=== PATIENT | female | born 1980 | race Caucasian/White ===

== ENCOUNTER → 2016-06-11 | Outpatient (CLI) | payer OTHER ==
[~2016-06-11] MED LIST: AMOX875T PO; METH4PAK4 PO; NORE-18 PO; PRENTAB26 PO
== END | disposition home or self-care (01) ==
LOC: C.LABSPEC 14:58
PROVIDERS: ATTEND Obstetrics & Gynecology
DX: Z34.83 Encounter for supervision of other normal pregnancy, third trimester (principal)

== ENCOUNTER 2016-07-01 19:45 | Inpatient (IN) | payer OTHER ==
[~2016-07-01] VITALS: Ht 156.8 cm; Wt 59.1 kg
[~2016-07-01 19:45] MED LIST changes: -AMOX875T PO; -NORE-18 PO
[2016-07-01] MEDS ORDERED: LACTATED RINGER'S 1000ML 1,000 ML IV PRN (20:28)
[2016-07-01] MEDS ORDERED: MISOPROSTOLTAB 50 MCG TAB PO ONE (20:30)
[2016-07-01 20:45] VITALS: Ht 156.8 cm; Wt 59.1 kg
[2016-07-01 21:00] LABS: HEMATOCRIT 37.1 % (37-47); MEAN CELL VOLUME 94.2 fL (80-100); MEAN CORPUSCULAR HEMOGLOBIN 32.2 pg (25-34); MEAN CORPUSCULAR HGB CONC 34.2 g/dl (32-36); MEAN PLATELET VOLUME 10.4 fL (7.4-10.4); PLATELET COUNT 239 K/uL (130-400); RED BLOOD COUNT 3.94 M/uL (4.2-5.4); WHITE BLOOD COUNT 8.96 K/uL (4.8-10.8)
[2016-07-02] MEDS: LACTATED RINGER'S 1000ML 1,000 ML IV SCH ×2 (07:48→09:05)
[2016-07-02] MEDS ORDERED: BUPIVACAINE 0.25% 30 ML VIAL ONE ×2 (07:51→10:59)
[2016-07-02] MEDS ORDERED: EpHEDrine SULFATE INJ 50 MG/ML AMP ONE (07:52)
[2016-07-02] MEDS ORDERED: FENTANYL CITRATE INJ 50 MCG/1 ML 2 ML VIAL ONE (07:52)
[2016-07-02] MEDS ORDERED: FENTANYL 2MCG/ML ROPIV 1.25MG/ML 100ML BAG EPI ONE (07:52)
[2016-07-02] MEDS ORDERED: LACTATED RINGER'S 1000ML 500 ML IV PRN ×2 (08:41→09:14)
[2016-07-02] MEDS ORDERED: NALOXONE HCL INJ 1 MG in SODIUM CHLORIDE 0.9% 1000ML 1,000 ML IV PRN (08:41)
[2016-07-02] MEDS ORDERED: EpHEDrine SULFATE INJ 50 MG/ML AMP IV PRN (08:45)
[2016-07-02] MEDS ORDERED: ONDANSETRON INJ 2 MG/ML 2 ML VIAL IV PRN (08:45)
[2016-07-02] MEDS ORDERED: NALOXONE HCL INJ 0.4 MG/1 ML VIAL/CARP IV PRN (08:45)
[2016-07-02] MEDS ORDERED: NALBUPHINE HCL INJ 10 MG/ML AMP IV PRN (08:45)
[2016-07-02] MEDS ORDERED: DiphenhydrAMINE HCL 50 MG/ML VIAL IV PRN (08:45)
[2016-07-02] MEDS ORDERED: FENTANYL 2MCG/ML ROPIV 1.25MG/ML 100ML BAG EPI PRN (08:45)
[2016-07-02] MEDS ORDERED: OXYTOCIN 30 UNITS/500ML NSS IV ONE (08:52)
[2016-07-02] MEDS ORDERED: OXYTOCIN 30 UNITS/500ML NSS IV PRN ×2 (09:15→12:30)
[2016-07-02] MEDS ORDERED: DIPHTHERIA/TETANUS/PERTUSSIS 0.5 ML SYR/VIAL IM. ONE (12:30)
[2016-07-02] MEDS ORDERED: LANOLIN OINT EXT PRN ×2 (12:30)
[2016-07-02] MEDS ORDERED: ACETAMINOPHEN/CODEINE 300/30MG TAB PO PRN ×2 (12:30)
[2016-07-02] MEDS ORDERED: OXYCODONE/ACETAMINOPHEN 5-325 TAB PO PRN (12:30)
[2016-07-02] MEDS ORDERED: HYDROCORTISONE ACETATE 25 MG SUPP PR PRN (12:30)
[2016-07-02] MEDS ORDERED: SUPERCREAM 0.870 % 15GM JAR EXT PRN (12:30)
[2016-07-02] MEDS ORDERED: BENZOCAINE 20% AER SPR 82.5 GM CAN EXT PRN (12:30)
--- NOTE | 2016-07-02 13:17 | Anesthesia Procedure Note ---
Anesthesia Epidural Removal Nt Date & Time July 02, 2016 at 13:17 Vital Signs Pain Intensity: 0.0 Notes Mental Status: alert / awake / arousable, participated in evaluation Nausea / Vomiting: adequately controlled Pain: adequately controlled Airway Patency, RR, SpO2: stable & adequate BP & HR: stable & adequate Hydration State: stable & adequate Neuraxial Anesthesia: was administered, sensory block is resolving Anesthetic Complications: no major complications apparent, pt satisfied with anesthetic care Epidural: removed without complications, with tip intact
--- NOTE | 2016-07-02 13:32 | DELIVERY SUMMARY ---
DATE OF OPERATION: 07/02/2016 DATE OF DELIVERY: 07/02/2016. Dominga is a 36-year-old 3, para 3. Her general health is good. Her blood type is B positive, rubella immune. She was dated with an early first trimester ultrasound giving her a due date of 07/08/2016. She was brought in at 39+ weeks for induction. At the time of admission, her cervix was 1.5 cm dilated. Presenting part was high, was uneffaced posterior. We gave her 50 mcg of Cytotec. She contracted throughout the evening and the next morning when I came in to check her she was like 4-5 about 80-90% effaced. After this she requested and received epidural from which she obtained good pain relief. After the epidural was in place membranes were ruptured, fluid was clear. She was then augmented with IV Pitocin. She went to full dilatation and delivered a live infant via direct occiput anterior position over an intact perineum, controlled delivery of the head; however, she did incur first degree laceration. There was a nuchal cord which was easily reduced over the head. was suctioned through the mouth and the nose. Shoulders were delivered without difficulty. Cord was clamped, cut by the father. Cord blood was taken. With IV Pitocin running, uterus contracted nicely and the placenta was removed intact. Following this, hemostasis was good. Inspection of the perineum revealed a first degree laceration. This was repaired anatomically with 2-0 Vicryl. 2-0 Vicryl was used to approximate the vaginal mucosa out to beyond the hymenal ring. A deep suture of 2-0 Vicryl was used to approximate the bulbocavernosus muscles and 3 interrupted sutures of 2-0 Vicryl were used to approximate the perineal body. Following this, a running subcuticular suture of Vicryl used to approximate the perineal skin edges. Sponges were removed from the vagina. Vaginal exam including rectovaginal examination revealed no hematoma formation or sponges in the vagina. Hemostasis was good. Estimated blood loss 300 mL. Estimated Apgars were 8 and 9 respectively. I attest to the content of the Intraoperative Record and any orders documented therein. Any exceptio ns are noted below.
[2016-07-02 18:30] VITALS: BP 131/70; PULSE 84; TEMP 36.6
[2016-07-02 19:25] VITALS: BP 113/72; PULSE 73; TEMP 36.7; O2SAT 97
[2016-07-02] MEDS: ACETAMINOPHEN 325 MG TAB PO PRN (22:49)
[2016-07-02 23:30] VITALS: BP 107/62; PULSE 68; TEMP 36.7; O2SAT 98
[2016-07-03 03:45] VITALS: BP 94/61; PULSE 83; TEMP 36.7; O2SAT 97
[2016-07-03 07:41] LABS: HEMATOCRIT 36.5 % (37-47)
[2016-07-03 07:45] VITALS: BP 97/61; PULSE 71; TEMP 36.6; O2SAT 94
[2016-07-03] MEDS ORDERED: PRENATAL VITAMIN TAB PO SCH (08:00)
[2016-07-03] MEDS ORDERED: FERROUS SULFATE 325 MG TAB PO SCH (08:00)
[2016-07-03] MEDS: ACETAMINOPHEN 325 MG TAB PO PRN (08:11)
--- NOTE | 2016-07-03 09:43 | Progress Note ---
Subjective July 03, 2016. Subjective conversation w/ patient Ambulation: ambulating normally Voiding: no voiding problems Passing Gas: Yes Diet Tolerance: Regular Diet Lochia: Small Feeding Type: Breast Feeding Review of Systems Constitutional: + fever Objective Vital Signs Date Time Temp Pulse Resp B/P Pulse Ox O2 Delivery O2 Flow Rate FiO2 07/03/16 03:45 36.7 83 18 94/61 97 Room Air 07/02/16 23:30 98 Room Air 07/02/16 23:30 36.7 68 18 107/62 98 Room Air 07/02/16 19:25 36.7 73 16 113/72 97 Room Air 07/02/16 19:25 97 Room Air 07/02/16 18:30 36.6 84 20 131/70 Physical Exam General Appearance: WELL-APPEARING Abdomen: non tender Fundus: Firm, Non-Tender Extremities: no pedal edema, no calf tenderness Laboratory Results Last 24 Hours Test 07/03/16 07:30 Hemoglobin 12.0 g/dL Hematocrit 36.5 % Assessment and Plan Post- Day#: 1
--- NOTE | 2016-07-03 09:45 | Discharge Instructions ---
Discharge Instructions Date of Service July 03, 2016. Admission Reason for Admission: IUP Discharge Discharge Diagnosis / Problem: induction of labor Discharge Goals Goal(s): Routine recovery after delivery Activity Recommendations Activity Limitations: as noted below ACTIVITY RECOMMENDATIONS: * Gradual return to full activity over the next 2-3 weeks. * No lifting - nothing heavier than baby over the next 2-3 weeks. * Do not engage in vigorous exercise, sexual activity or sports until cleared by your physician. * Do not drive or operate any motorized equipment until cleared by your physician. * You may shower/bathe daily. DIET: Resume Previous Diet If Breast-feeding: * Increase caloric intake by 500 calories, eat 3 well balanced meals, 2 high protein snacks a day and drink 6-8 8oz. glasses of fluid per day. BREAST CARE: If you are not breast feeding: * Wear a supportive bra 24 hours a day for one to two weeks. * Avoid stimulating your breasts and nipples as much as possible during the first few weeks after delivery. * When taking a shower, have the warm water hit your back, not breasts. * When your breasts feel full, apply ice packs. Usually three to four times a day helps ease the discomfort. * Take a mild pain medication (Tylenol / Motrin) when you are uncomfortable. If breast feeding: * Use breast milk to lubricate nipples. Lansinoh cream may be used for sore nipples. You do not need to remove cream prior to breast feeding. If using a different brand of cream, check the label for directions regarding removal of cream prior to nursing. * Wear a supportive bra. * If having problems with breasts or breast feeding, call a communications consultant or your health care provider. OVER THE COUNTER MEDICATION: * For discomfort or pain, you may use Acetaminophen (Tylenol), Ibuprofen (Advil ), or Naproxen (Aleve) following the package directions. * For constipation you may use Colace following the package directions. SPECIAL CARE INSTRUCTIONS: * Vaginal rest (no tampons, douching, intercourse) until after doctor 's visit. * control as discussed with doctor. * Verbalizes understanding of car seat law as reviewed with patient nursing. * Car Seat hand-out given and reviewed with patient by nursing. * Shaken baby information reviewed with patient by nursing. Call you doctor if: * Temperature greater than or equal to 100.4 degrees F or 38.0 degrees C. Take your temperature twice daily for a week. * Bleeding becomes heavier than the heaviest part of your period - saturating a sanitary pad within an hour. * Passing large clots. * Bleeding has a foul smelling odor. * Signs and symptoms of phlebitis: leg pain, warm, red or swollen area on leg. * "Baby Blues" lasting longer than two weeks. ++ If you have had a and incision has increased pain, redness, swelling, presence of any drainage, or if the incision starts to open up. If you have any questions or concerns, call your health care practitioner at [phone]. FOLLOW-UP VISIT: Please call the office at to schedule a 6 week examination. . Instructions / Follow-Up Instructions / Follow-Up ACTIVITY RECOMMENDATIONS: * Gradual return to full activity over the next 2-3 weeks. * No lifting - nothing heavier than baby over the next 2-3 weeks. * Do not engage in vigorous exercise, sexual activity or sports until cleared by your physician. * Do not drive or operate any motorized equipment until cleared by your physician. * You may shower/bathe daily. DIET: Resume Previous Diet If Breast-feeding: * Increase caloric intake by 500 calories, eat 3 well balanced meals, 2 high protein snacks a day and drink 6-8 8oz. glasses of fluid per day. BREAST CARE: If you are not breast feeding: * Wear a supportive bra 24 hours a day for one to two weeks. * Avoid stimulating your breasts and nipples as much as possible during the first few weeks after delivery. * When taking a shower, have the warm water hit your back, not breasts. * When your breasts feel full, apply ice packs. Usually three to four times a day helps ease the discomfort. * Take a mild pain medication (Tylenol / Motrin) when you are uncomfortable. If breast feeding: * Use breast milk to lubricate nipples. Lansinoh cream may be used for sore nipples. You do not need to remove cream prior to breast feeding. If using a different brand of cream, check the label for directions regarding removal of cream prior to nursing. * Wear a supportive bra. * If having problems with breasts or breast feeding, call a communications consultant or your health care provider. OVER THE COUNTER MEDICATION: * For discomfort or pain, you may use Acetaminophen (Tylenol), Ibuprofen (Advil ), or Naproxen (Aleve) following the package directions. * For constipation you may use Colace following the package directions. SPECIAL CARE INSTRUCTIONS: * Vaginal rest (no tampons, douching, intercourse) until after doctor 's visit. * control as discussed with doctor. * Verbalizes understanding of car seat law as reviewed with patient nursing. * Car Seat hand-out given and reviewed with patient by nursing. * Shaken baby information reviewed with patient by nursing. Call you doctor if: * Temperature greater than or equal to 100.4 degrees F or 38.0 degrees C. Take your temperature twice daily for a week. * Bleeding becomes heavier than the heaviest part of your period - saturating a sanitary pad within an hour. * Passing large clots. * Bleeding has a foul smelling odor. * Signs and symptoms of phlebitis: leg pain, warm, red or swollen area on leg. * "Baby Blues" lasting longer than two weeks. ++ If you have had a and incision has increased pain, redness, swelling, presence of any drainage, or if the incision starts to open up. If you have any questions or concerns, call your health care practitioner at [phone]. FOLLOW-UP VISIT: Please call the office at to schedule a 6 week examination. Current Hospital Diet Patient's current hospital diet: Regular OB Diet Discharge Diet Recommended Diet: Regular Diet Pending Studies Studies pending at discharge: no Medical Emergencies . Who to Call and When: Medical Emergencies: If at any time you feel your situation is an emergency, please call 911 immediately. . Non-Emergent Contact Non-Emergency issues call your: [facility] Consultant Call Non-Emergent contact if: temperature is above 100.5 . . "Provider Documentation" section prepared by Ryan Amaro. . VTE Core Measure Inpt VTE Proph given/why not?: Treatment not indicated
[2016-07-03] MEDS ORDERED: NURSING VERBAL MED ORDER ONE (11:15)
[2016-07-03] MEDS ORDERED: IBUPROFEN 600 MG TAB PO ONE (11:30)
[2016-07-03 12:00] VITALS: BP 106/68; PULSE 68; TEMP 36.8; O2SAT 95
[2016-07-03 14:14] VITALS: BP_DIAS 68; PULSE 68; TEMP 36.8
[2016-07-03] MEDS ORDERED: BISACODYL 5 MG TABEC PO SCH (20:00)
[2016-07-04] MEDS ORDERED: BISACODYL 10 MG SUPP PR PRN (07:00)
== END 2016-07-03 14:15 | disposition home or self-care (01) | DRG 775 ==
LOC: C.LD 19:45 → C.OBG 07-02 18:37
PROVIDERS: ADMIT Obstetrics & Gynecology; ATTEND Obstetrics & Gynecology
PROC: 0HQ9XZZ Repair Perineum Skin, External Approach (ICD-10-PCS; principal; 2016-07-02)
PROC: 10907ZC Drainage of Amniotic Fluid, Therapeutic from Products of Conception, Via Natural or Artificial Opening (ICD-10-PCS; principal; 2016-07-02)
PROC: 10E0XZZ Delivery of Products of Conception, External Approach (ICD-10-PCS; principal; 2016-07-02)
PROC: 3E033VJ Introduction of Other Hormone into Peripheral Vein, Percutaneous Approach (ICD-10-PCS; principal; 2016-07-02)
DX: O26.893 Other specified pregnancy related conditions, third trimester (principal); Z37.0 Single live birth; O70.0 First degree perineal laceration during delivery; O69.81X0 Labor and delivery complicated by cord around neck, without compression, not applicable or unspecified; Z3A.39 39 weeks gestation of pregnancy

== ENCOUNTER → 2016-09-10 | Outpatient (CLI) | payer OTHER ==
[~2016-09-10] MED LIST changes: -METH4PAK4 PO
== END | disposition home or self-care (01) ==
LOC: C.PAPS 15:51
PROVIDERS: ATTEND Obstetrics & Gynecology
DX: Z39.2 Encounter for routine postpartum follow-up (principal)

== ENCOUNTER 2016-12-28 21:05 | Emergency (ER) | payer OTHER ==
[~2016-12-28] VITALS: Ht 157.5 cm; Wt 47.5 kg
[2016-12-28] MEDS ORDERED: KETOROLAC TROMETHAMINE 30 MG/ML VIAL IV STA (21:28)
[2016-12-28] MEDS ORDERED: SODIUM CHLORIDE 0.9% 1000ML 1,000 ML IV STA (21:28)
[2016-12-28] MEDS ORDERED: ACETAMINOPHEN 500 MG TAB PO STA (21:28)
[2016-12-28 22:07] VITALS: Ht 157.5 cm; Wt 47.5 kg
[2016-12-28 22:08] VITALS: O2SAT 95
[2016-12-28] MEDS ORDERED: NORE-18 PO (22:08)
--- NOTE | 2016-12-28 22:19 | DIAGNOSTIC IMAGING REPORT ---
CHEST ONE VIEW PORTABLE CLINICAL HISTORY: fever/cough cough COMPARISON STUDY: 2013 FINDINGS: Consolidative infiltrate right base and right infrahilar region. Lungs otherwise are clear. Diaphragms smooth. Costophrenic angles are sharp. IMPRESSION: Infiltrate right base The above report was generated using voice recognition software. It may contain grammatical, syntax or spelling errors. Electronically signed by: Germán Barbour M.D. 12/28/2016 10:18 PM Dictated Date/Time: 12/28/2016 10:18 PM
[2016-12-28 22:30] LABS: BASO % 0.2 %; BASO ABS # 0.03 K/uL (0-0.2); COMPLETE YES; EOS % 0.2 %; HEMATOCRIT 39.3 % (37-47); IG% 0.4 %; LYMPH % 11.2 %; LYMPH ABS # 1.46 K/uL (1.2-3.4); MEAN CELL VOLUME 89.9 fL (80-100); MEAN CORPUSCULAR HEMOGLOBIN 30.9 pg (25-34); MEAN CORPUSCULAR HGB CONC 34.4 g/dl (32-36); MEAN PLATELET VOLUME 9.9 fL (7.4-10.4); MONO % 10.3 %; NEUT % 77.7 %; PLATELET COUNT 222 K/uL (130-400); RED BLOOD COUNT 4.37 M/uL (4.2-5.4); WHITE BLOOD COUNT 13.02 K/uL (4.8-10.8)
[2016-12-28] MEDS ORDERED: CEFTRIAXONE SOD INJ 1 GM ADDVIAL IV STA (22:34)
[2016-12-28 22:40] LABS: INR 1.2 (0.9-1.1); PARTIAL THROMBOPLASTIN RATIO 1.1; PROTHROMBIN TIME (PATIENT) 12.5 SECONDS (9.0-12.0)
[2016-12-28 22:47] LABS: ALT/SGPT 10 U/L (12-78); BLOOD UREA NITROGEN 14 mg/dl (7-18); BUN/CREATININE RATIO 13.6 (10-20); CALCIUM 8.6 mg/dl (8.5-10.1); CARBON DIOXIDE 26 mmol/L (21-32); CHLORIDE 101 mmol/L (98-107); CREATININE 1.04 mg/dl (0.60-1.20); GLUCOSE 115 mg/dl (70-99); SODIUM 135 mmol/L (136-145)
[2016-12-28 22:50] LABS: ALB/GLOB RATIO 0.9 (0.9-2); ALKALINE PHOSPHATASE 62 U/L (45-117); AST/SGOT 16 U/L (15-37)
[2016-12-28 22:57] LABS: PREG INTERNAL NEGATIVE QC NEG CLEAR BACKGROUND; PREG INTERNAL POSITIVE QC POS CONTROL LINE
[2016-12-28] MEDS ORDERED: KETOROLAC TROMETHAMINE 30 MG/ML VIAL ONE (23:16)
[2016-12-28 23:24] VITALS: TEMP 37.3
[2016-12-28] MEDS ORDERED: POTASSIUM CHLORIDE 10 MEQ TABCR PO STA (23:42)
[2016-12-28 23:53] LABS: INFLUENZA A PCR Neg for Influ A (NEG); INFLUENZA B PCR Neg for Influ B (NEG)
[2016-12-28 23:54] LABS: URINE APPEARANCE CLEAR (CLEAR); URINE BILIRUBIN NEG (NEG); URINE COLOR YELLOW; URINE EPITHELIAL CELL AUTO >30 /lpf (0-5); URINE NITRITE NEG (NEG); URINE SPECIFIC GRAVITY 1.015 (1.000-1.030); UROBILINOGEN NEG (NEG)
[2016-12-28 23:56] LABS: MANUAL MICROSCOPIC REQUIRED? NO; REVIEW REQ? YES
[2016-12-29 00:25] LABS: URINE PATH CASTS 5-10 WBC CASTS /lpf (0)
--- NOTE | 2016-12-29 00:25 | EMERGENCY ROOM VISIT NOTE ---
History First contact with patient: 21:23 Chief Complaint: FEVER Stated Complaint: FEVER, HEADACHE, TIGHT CHEST, DIZZY History of Present Illness The patient is a 36 year old female who presents to the Emergency Room with complaints of cough, congestion, chest tightness, headache, fever, chills, myalgias and arthralgias for the past 3 days. Tmax 102. She took Motrin at noon. Patient is currently breast-feeding. No sick contacts. No flu shot. No recent antibiotics. No tick bites. Patient denies any active medical problems. She is tolerate by mouth fluids and food. Patient denies dyspnea, abdominal pain, vomiting, diarrhea, neck status, sore throat. No rashes. No recent antibiotics. No recent travel. Review of Systems See HPI for pertinent positives & negatives. A total of 10 systems reviewed and were otherwise negative. Past Medical/Surgical History Medical Problems: (1) Term Surgical Problems: (1) Hx of tonsillectomy Family History No pertinent family history Social History Smoking Status: Never Smoker Alcohol Use: none Drug Use: none Marital Status: Housing Status: lives with family, lives with significant other Occupation Status: employed Current/Historical Medications Scheduled Norethindrone (Contraceptive) (Sharobel), 1 TAB PO DAILY Physical Exam Vital Signs Date Time Temp Pulse Resp B/P (MAP) Pulse Ox O2 Delivery O2 Flow Rate FiO2 12/28/16 23:24 37.3 12/28/16 22:12 87 20 96/62 97 Room Air 12/28/16 22:08 95 Room Air 12/28/16 21:08 39.0 101 20 118/73 94 Room Air Physical Exam VITALS: Vitals are noted on the nurse's note and reviewed by myself. Vital signs febrile GENERAL: Pleasant female mildly ill-appearing, in no acute distress, nondiaphoretic, well-developed well-nourished. SKIN: The skin was without rashes, erythema, edema, or bruising. There is no tenting of the skin. Capillary reflex less than 2 seconds. HEAD: Normocephalic atraumatic. EARS: External auditory canals clear, tympanic membranes pearly wright without erythema or effusion bilaterally. EYES: Pupils equal round and reactive to light and accommodation. Conjunctivae without injection, sclerae without icterus. Extraocular movements intact. NOSE: Patent, turbinates without inflammation or discharge. No sinus tenderness. MOUTH: Mucous membranes mildly dry. Pharynx without erythema or exudate. Uvula midline. Airway patent. Tongue does not deviate. NECK: Supple without nuchal rigidity. No lymphadenopathy. No thyromegaly. Cervical spine is nontender. No JVD. No meningeal signs HEART: Regular rate and rhythm without murmurs gallops or rubs. LUNGS: Clear to auscultation bilaterally without wheezes, or rhonchi. No retractions or accessory muscle use. ABDOMEN: Positive bowel sounds x 4. Normal tympanic percussion. Soft, nontender, without masses or organomegaly. Vera sign negative. No guarding or rebound tenderness. No CVA tenderness MUSCULOSKELETAL: No muscle atrophy, erythema, or edema noted. NEURO: Patient was alert and oriented to person place and time. Normal sensation to light and sharp touch. No focal neurological deficits. Medical Decision & Procedures Laboratory Results 12/28/16 22:07 Red Blood Count 4.37, Mean Corpuscular Volume 89.9, Mean Corpuscular Hemoglobin 30.9, Mean Corpuscular Hemoglobin Concent 34.4, Mean Platelet Volume 9.9, Neutrophils (%) (Auto) 77.7, Lymphocytes (%) (Auto) 11.2, Monocytes (%) (Auto) 10.3, Eosinophils (%) (Auto) 0.2, Basophils (%) (Auto) 0.2, Neutrophils # (Auto ) 10.12, Lymphocytes # (Auto) 1.46, Monocytes # (Auto) 1.34, Eosinophils # (Auto ) 0.02, Basophils # (Auto) 0.03 12/28/16 22:07 Test 12/28/16 21:43 12/28/16 22:07 12/28/16 22:20 12/28/16 23:30 Influenza Type A (RT-PCR) Neg for Influ A (NEG) Influenza Type A Antigen Neg for Influ A (NEG) Influenza Type B Antigen Neg for Influ B (NEG) Influenza Type B (RT-PCR) Neg for Influ B (NEG) White Blood Count 13.02 K/uL (4.8-10.8) Red Blood Count 4.37 M/uL (4.2-5.4) Hemoglobin 13.5 g/dL (12.0-16.0) Hematocrit 39.3 % (37-47) Mean Corpuscular Volume 89.9 fL (80-100) Mean Corpuscular Hemoglobin 30.9 pg (25-34) Mean Corpuscular Hemoglobin Concent 34.4 g/dl (32-36) Platelet Count 222 K/uL (130-400) Mean Platelet Volume 9.9 fL (7.4-10.4) Neutrophils (%) (Auto) 77.7 % Lymphocytes (%) (Auto) 11.2 % Monocytes (%) (Auto) 10.3 % Eosinophils (%) (Auto) 0.2 % Basophils (%) (Auto) 0.2 % Neutrophils # (Auto) 10.12 K/uL (1.4-6.5) Lymphocytes # (Auto) 1.46 K/uL (1.2-3.4) Monocytes # (Auto) 1.34 K/uL (0.11-0.59) Eosinophils # (Auto) 0.02 K/uL (0-0.5) Basophils # (Auto) 0.03 K/uL (0-0.2) RDW Standard Deviation 39.0 fL (36.4-46.3) RDW Coefficient of Variation 11.9 % (11.5-14.5) Immature Granulocyte % (Auto) 0.4 % Immature Granulocyte # (Auto) 0.05 K/uL (0.00-0.02) Prothrombin Time 12.5 SECONDS (9.0-12.0) Prothromb Time International Ratio 1.2 (0.9-1.1) Activated Partial Thromboplast Time 29.2 SECONDS (21.0-31.0) Partial Thromboplastin Ratio 1.1 Anion Gap 9.0 mmol/L (3-11) Est Creatinine Clear Calc Drug Dose 55.0 ml/min Estimated GFR () 78.9 Estimated GFR (Non- 68.1 BUN/Creatinine Ratio 13.6 (10-20) Calcium Level 8.6 mg/dl (8.5-10.1) Total Bilirubin 0.5 mg/dl (0.2-1) Aspartate Amino Transf (AST/SGOT) 16 U/L (15-37) Alanine Aminotransferase (ALT/SGPT) 10 U/L (12-78) Alkaline Phosphatase 62 U/L (45-117) Troponin I < 0.015 ng/ml (0-0.045) Total Protein 8.0 gm/dl (6.4-8.2) Albumin 3.7 gm/dl (3.4-5.0) Globulin 4.3 gm/dl (2.5-4.0) Albumin/Globulin Ratio 0.9 (0.9-2) Human Chorionic Gonadotropin, Qual NEG (NEG) Bedside Lactic Acid Venous 0.98 mmol/L (0.90-1.70) Urine Color YELLOW Urine Appearance CLEAR (CLEAR) Urine pH 6.0 (4.5-7.5) Urine Specific Savage 1.015 (1.000-1.030) Urine Protein TRACE (NEG) Urine Glucose (UA) NEG (NEG) Urine Ketones 1+ (NEG) Urine Occult Blood NEG (NEG) Urine Nitrite NEG (NEG) Urine Bilirubin NEG (NEG) Urine Urobilinogen NEG (NEG) Urine Leukocyte Esterase TRACE (NEG) Test 12/28/16 23:56 Bedside Troponin I < 0.030 ng/ml (0-0.045) Medications Administered Medications (Trade) Dose Ordered Sig/Tyler Route Start Time Stop Time Status Last Admin Dose Admin Acetaminophen (Tylenol Tab) 1,000 mg NOW STAT PO 12/28/16 21:28 12/28/16 21:30 DC 12/28/16 22:06 1,000 MG Sodium Chloride 1,000 ml @ 999 mls/hr Q1H1M STAT IV 12/28/16 21:28 12/28/16 22:28 DC 12/28/16 22:07 999 MLS/HR Ceftriaxone Sodium (Rocephin Inj) 1 gm NOW STAT IV 12/28/16 22:34 12/28/16 22:35 DC 12/28/16 23:23 1 GM Potassium Chloride (Klor-Con M10) 40 meq NOW STAT PO 12/28/16 23:42 12/28/16 23:43 DC 12/29/16 00:00 40 MEQ ED Course Prior records/ancillary studies reviewed. Triage Nursing notes reviewed. Additional history obtained from family. The patient's history was concerning for fever. Differential diagnosis: Etiologies such as viral syndrome, otitis, pharyngitis, pneumonia, influenza, meningitis, urinary tract infection, sepsis, bacteremia, as well as others were entertained. Physical examination: Patient is alert, interactive and tolerating fluids ER treatment provided: Tylenol, normal saline, Rocephin On reassessment the patient felt better. Diagnostics interpreted by me: ECG: Normal sinus, normal intervals, normal axis, minimal ST depression in the inferior leads, rate of 89. EKG compared to prior EKG with normal sinus rhythm with minimal less than [address] depressions in the inferior leads interpreted by myself. This could've been lead placement. The second repeat EKG was completely normal. Repeat EKG shows normal sinus, normal intervals, normal axis, no acute ST-T wave changes. Impression normal sinus rhythm interpreted by myself. The labs revealed leukocytosis. Negative lactic acid, hypokalemia and this is replaced orally Imaging studies: CLINICAL HISTORY: fever/cough cough COMPARISON STUDY: 2013 FINDINGS: Consolidative infiltrate right base and right infrahilar region. Lungs otherwise are clear. Diaphragms smooth. Costophrenic angles are sharp. IMPRESSION: Infiltrate right base The above report was generated using voice recognition software. It may contain grammatical, syntax or spelling errors. Electronically signed by: Germán Barbuor M.D. This appears to be consistent with pneumonia. Patient had stable vital signs. She is requesting to leave. She was given information on family care doctors in the area and advised to follow-up for reevaluation in a few days and repeat x -ray for resolution of infection. Patient had no signs of meningitis. She was not hypoxic. She was speaking in full sentences. She is tolerating fluids. She was advised to take medications as directed and to follow-up with family care in a few days or here in the ER sooner for high fevers, lethargy, difficulty breathing, neck stiffness, worsening signs or symptoms or as needed. By the evaluation outlined above emergent etiologies such as otitis, pharyngitis , meningitis, urinary tract infection, sepsis, bacteremia, as well as others were deemed relatively unlikely. The pt informed about the findings as listed above. All questions were answered and pleased with the treatment. Return instructions were outlined and the patient was discharged in stable condition. Outpatient prescription management: Augmentin Referral: The patient was referred back to their primary care physician for follow-up in 2 to 3 days for a recheck of the current condition. Case reviewed with my attending Medical Decision As above Medication Reconcilliation Current Medication List: was personally reviewed by me Blood Pressure Screening Patient's blood pressure: Normal blood pressure Impression Primary Impression: Right lower lobe pneumonia Additional Impressions: Hypokalemia Fever Departure Information Dispostion Home / Self-Care Condition GOOD Referrals No Doctor, Assigned (PCP) Patient Instructions My [facility] Additional Instructions DO NOT drive, drink alcohol, operate machinery, or perform dangerous activities today. You were given medications in the ER that can affect your ability to safely function or operate a vehicle. Amoxicillin Clavulanate (Augmentin) 875mg: Take one pill twice daily for 10 days for your infection. All antibiotics can cause diarrhea. If this occurs and you feel worse or it does not resolve in 1-2 days follow up with your doctor or return to the Emergency Department as this could be signs of serious underlying problems. Any medication can cause an allergic reaction, stop the pills immediately and return to the ER for rash, hives, breathing difficulties, or swelling. Acetaminophen(Tylenol) may be used for fever or pain. Use 1000mg every six hours as needed. Avoid using more than 3000mg in a 24 hour period. Controlling your fever with Tylenol and Ibuprofen as above will make you feel better. Rest and drink plenty of fluids. Avoid strenuous activity until your symptoms resolve and your breathing returns to normal. Continue current medications. Return to the ER for chest pain, difficulty breathing, persistent fevers, vomiting, worsening of your condition, or as needed. Follow-up with family care in 2-3 days. You need to repeat her chest x-ray in a few weeks for resolution of pneumonia. Follow-up family care for this. Problem Qualifiers Primary Impression: Right lower lobe pneumonia Pneumonia type: due to unspecified organism Qualified Codes: J18.1 - Lobar pneumonia, unspecified organism
[2016-12-29] MEDS ORDERED: AMOX875T PO (00:26)
[2016-12-29 00:28] LABS: ZZUR CULT IF INDIC CLEAN CATCH YES
[2016-12-29] MEDS ORDERED: AMOXICIL/CLAVU 875MG HOME PACK PO ONE (00:30)
[2016-12-29 00:34] VITALS: BP 94/61; PULSE 77; O2SAT 97
--- NOTE | 2016-12-31 13:30 | Pharmacy Progress Note ---
ED Pharmacist Culture FollowUp Date of Service: Dec 31, 2016. Urine Cx is growing gardnerella-like bacilli. Patient had not c/o urinary symptoms or vaginal discharge. This is likely contaminant (>30epis on UA). No action required.
== END 2016-12-29 00:35 | disposition home or self-care (01) ==
LOC: C.EDB 21:06 → C.EDA 12-29 00:35
DX: J18.1 Lobar pneumonia, unspecified organism (principal); E87.6 Hypokalemia; R50.9 Fever, unspecified; R51 Headache; R42 Dizziness and giddiness

== ENCOUNTER → 2017-01-24 | Outpatient (CLI) | payer OTHER ==
[~2017-01-24] MED LIST changes: +NORE-18 PO; -PRENTAB26 PO
--- NOTE | 2017-01-24 09:01 | DIAGNOSTIC IMAGING REPORT ---
TWO VIEW CHEST CLINICAL HISTORY: Follow-up pneumonia. FINDINGS: PA and lateral chest radiographs are compared to study dated 12/28/2016. The cardiomediastinal silhouette is unremarkable. The lungs and pleural spaces are clear. There is no pneumothorax. The bony thorax appears intact. IMPRESSION: The lungs are clear. Consolidation in the right lung seen on 12/28/2016 has resolved. Electronically signed by: Hieu Gomez M.D. 01/24/2017 9:00 AM Dictated Date/Time: 01/24/2017 8:57 AM
== END | disposition home or self-care (01) ==
LOC: C.RAD 08:46
PROVIDERS: ATTEND Neuromusculoskeletal Medicine & OMM
DX: Z00.00 Encounter for general adult medical examination without abnormal findings (principal); J18.9 Pneumonia, unspecified organism

== ENCOUNTER → 2017-10-25 | Outpatient (CLI) | payer OTHER ==
[2017-10-25 09:38] LABS: BASO % 0.9 %; BASO ABS # 0.06 K/uL (0-0.2); EOS % 3.9 %; EOS ABS # 0.27 K/uL (0-0.5); HEMATOCRIT 40.4 % (37-47); HEMOGLOBIN 13.6 g/dL (12.0-16.0); IG# 0.02 K/uL (0.00-0.02); LYMPH % 38.7 %; LYMPH ABS # 2.71 K/uL (1.2-3.4); MEAN CELL VOLUME 91.2 fL (80-100); MEAN CORPUSCULAR HEMOGLOBIN 30.7 pg (25-34); MEAN CORPUSCULAR HGB CONC 33.7 g/dl (32-36); MEAN PLATELET VOLUME 9.7 fL (7.4-10.4); MONO ABS # 0.49 K/uL (0.11-0.59); NEUT % 49.2 %; NEUT ABS # 3.45 K/uL (1.4-6.5); PLATELET COUNT 325 K/uL (130-400); RED CELL DISTRIBUTION WIDTH CV 12.3 % (11.5-14.5); RED CELL DISTRIBUTION WIDTH SD 41.9 fL (36.4-46.3)
[2017-10-25 10:21] LABS: ALBUMIN 3.9 gm/dl (3.4-5.0); ALKALINE PHOSPHATASE 39 U/L (45-117); ALT/SGPT 11 U/L (12-78); AST/SGOT 12 U/L (15-37); BLOOD UREA NITROGEN 14 mg/dl (7-18); CALCIUM 8.5 mg/dl (8.5-10.1); CARBON DIOXIDE 26 mmol/L (21-32); CREATININE 0.67 mg/dl (0.60-1.20); GLUCOSE 64 mg/dl (70-99); POTASSIUM 3.6 mmol/L (3.5-5.1); SODIUM 139 mmol/L (136-145); TOTAL PROTEIN 7.1 gm/dl (6.4-8.2)
== END | disposition home or self-care (01) ==
LOC: C.LAB 08:46
PROVIDERS: ATTEND Neuromusculoskeletal Medicine & OMM
DX: R00.2 Palpitations (principal)